=== PATIENT | female | born 1955 | race African-American/Black ===

== ENCOUNTER → 2019-11-19 | Day surgery (SDC) | payer OTHER ==
[~2019-11-19] MED LIST: ASA81BEC PO; ATIVAN0.5 M1 PO; CARVEDILOL12.5 MG PO; LEVO-T100 MCG PO; LIPITOR40 MG PO; NORCO 5-325 TA1 EAC1 PO; NORVASC10 MG PO; TYLENOL325 M1 PO; ULTRAM 50MG TAB50 MG PO
[2019-11-19 08:28] LABS: HEMATOCRIT 37.1 % (37.0-47.0); HEMOGLOBIN 12.4 gm/dL (12.0-15.0); MCH 29.6 pg (26.0-34.0); MCHC 33.4 g/dL (28.0-37.0); MCV 88.6 fL (80.0-100.0); MPV 7.2 fl. (7.2-11.1); RBC 4.19 mil/uL (4.20-5.00); RDW-CV 13.7 % (10.5-14.5); WBC 12.3 thou/uL (4.0-11.0)
[2019-11-19 08:34] LABS: CALCIUM 9.2 mg/dL (8.5-10.1); CREATININE 0.8 mg/dL (0.6-1.3); POTASSIUM 4.2 mmol/L (3.5-5.1)
--- NOTE | 2019-11-19 10:35 | EKG ---
[place] [address] ELECTROCARDIOGRAM REPORT Name: CHRISAGNIESZKA Vyas Room: [facility]#: [id number] Admission: 11/19/19 Attend Phys: Charly Song Discharge: Date of : 57 Date of Service: 11/19/19812 Report #: [id number] THIS REPORT FOR: //name// [facility] Test Date: 2019-11-19 Test Time: 08:13:52 Pat Name: AGNIESZKA PEREZ Department: Room: Gender: Director Hospice Operations: : 1955 Requested By: Charly Peterson Order Number: [id number] Reading MD: Constantino Jimenez Measurements Intervals Calvin Rate: 82 P: 28 IL: 120 QRS: -17 QRSD: 87 T: 5 QT: 353 QTc: 413 Interpretive Statements Sinus rhythm Abnormal R-wave progression, early transition Left ventricular hypertrophy Borderline T abnormalities, inferior leads Baseline wander in lead(s) V4,V5 No previous ECG available for comparison Electronically Signed On 11-19-2019 10:33:30 CDT by Constantino Jimenez [email or web address] <ELECTRONICALLY SIGNED> By: Constantino Jimenez MD, [facility] 11/19/19 1033 2 Constantino Jimenez MD, [facility] /EPI
--- NOTE | 2019-11-23 23:07 | PATH ---
[facility] [address] [place] [address] PATHOLOGY RPT PROCEDURE Name: BRIANNA PEREZ Asael Room: [facility].#: [id number] Admission: 11/19/19 Date of : 57 Discharge: Report #: [id number] Path Case #: [id number] [facility] Accession Number: [id number] . 01 Material submitted: . lymph node - RIGHT SUPRACLAVICULAR LYMPH NODE. Modifiers: right . 01 Clinical history: . Generalized enlarged lymph node. . 02 Diagnosis: "Right supraclavicular lymph node", excisional biopsy: - Lymph node with hyperplasia. (See comment) . (CLW:lee; 11/23/2019) [facility] 11/23/2019 1350 Local . 02 Comment: Sections show fragments of lymph node with overall retained lymph node architecture. From low power, there are variably sized follicles showing irregular, well-formed germinal centers. The germinal centers have polarized mantle/marginal zones and tingible body macrophages. The interfollicular spaces are mildly expanded by reactive-appearing lymphohistiocytic cells. No markedly atypical lymphoid cells, including Zuhair-Nyasia cells, are identified. No granulomas, metastatic carcinoma or other infiltrative processes are seen. . To highlight the lymph node architecture, properly-controlled immunohistochemical stains are performed: . Block A1: CD20 - Stains B-cells primarily in follicles; PAX-5 - Stains B-cells primarily in follicles; CD3 - Stains interfollicular T-cells; CD5 - Stains interfollicular T-cells, no B-cell co-expression; CD10 - Highlights the germinal center; BCL-6 - Highlights the germinal center; BCL-2 - The germinal centers are non-reactive; CD23 - Stains residual follicular dendritic cell meshwork; Cyclin D1 - Lacks diffuse nuclear staining; MUM1 - Highlights numerous smaller cells (plasma cells); Ki-67 - Increased staining within the germinal centers. . Overall, the diagnosis is lymph node with hyperplasia. There is no evidence of lymphoma or metastatic carcinoma in the material examined. If there is a strong clinical suspicion for a lymphoproliferative process and/or the adenopathy is persistent, fresh [place] [address] PATHOLOGY RPT PROCEDURE Name: AFIA PEREZRA Vyas Room: [facility]#: [id number] Admission: 11/19/19 Date of : 57 Discharge: Report #: [id number] Path Case #: [id number] cytometric immunophenotypic analysis may provide additional information, if clinically indicated. Clinical and radiographic correlation is recommended. The H and E stained slide is co-reviewed with Dr. Tejinder Taylor. The case is discussed with Dr. Peterson by Dr. Taylor on 11/23/19 at approximately 4:00 PM. . (CLW:mml; 11/23/2019) . 02 Electronically signed: . Chelsi Kelley MD, Pathologist NPI- [id number] . 01 Gross description: . Received in formalin labeled "Brianna Perez, right supraclavicular lymph node" is a olson-brown lymph node measuring 1.8 x 1.3 x 0.9 cm. The lymph node is serially sectioned and submitted entirely in cassette A1. ([facility]; 11/21/2019) [facility] 11/21/2019 1108 Local . 02 Pathologist provided ICD-10: R59.9 . 02 CPT . 882781, O04535, I37292 Specimen Comment: A courtesy copy of this report has been sent to [phone], [phone] Specimen Comment: [phone] Specimen Comment: Report sent to / DR VELASCO Performed at: 01 [facility] [address], [place] [id number] MD Mazin Jama MD Phone: [phone] Performed at: [address] [place] [address] [id number] MD Nic Floyd MD Phone: [phone]
--- NOTE | 2019-11-26 13:17 | OP ---
[facility] [address] [place] [address] OPERATIVE REPORT Name: AGNIESZKA PEREZ Room: [facility]#: [id number] Admission: 11/19/19 Attend Phys: Charly Peterson Discharge: Date of : 57 Report #: [id number] THIS REPORT FOR: //name// cc: Shantel Mendoza MD, Allison Louise MD ~ THIS REPORT FOR: //name// CC: Shantel Peterson DATE OF SERVICE: 11/19/2019 PREOPERATIVE DIAGNOSIS: Right supraclavicular lymphadenopathy. POSTOPERATIVE DIAGNOSIS: Right supraclavicular lymphadenopathy. OPERATION: Excisional biopsy of right supraclavicular lymph node. SURGEON: Charly Peterson MD ANESTHESIA: General. ESTIMATED BLOOD LOSS: Minimal. SPECIMEN: Right supraclavicular lymph node. DESCRIPTION OF PROCEDURE: After informed consent was obtained, the patient was brought to the operating room and placed supine. SCDs were placed and working, preoperative antibiotics were administered, general anesthesia was induced. The right chest was prepped and draped in the usual sterile fashion. The area was then anesthetized with 5 mL of 0.5% Marcaine solution. A 2 cm incision was made over the right mid clavicle. Cautery dissection was down made down through the subcutaneous tissue. The lymph node was then encountered. It was dissected around with cautery. I then measured approximately 1.5 x 1 cm. I clamped it at its pedicle and ligated it with a 3-0 Vicryl suture. The lymph node was then sent off as a specimen. The deep layer of the skin was then closed with 3-0 Vicryl in an interrupted fashion. Skin was closed with 4-0 Monocryl. Incisions were sealed with Dermabond. COMPLICATIONS: None. DISPOSITION: The patient was taken to recovery in satisfactory condition. <ELECTRONICALLY SIGNED> By: Charly Peterson MD 11/26/19 1317 1207 1212Charly Peterson MD /nt
== END | disposition home or self-care (01) ==
LOC: M.SUR 07:49
PROVIDERS: ATTEND Surgery
DX: R59.0 Localized enlarged lymph nodes (principal); I10 Essential (primary) hypertension; E03.9 Hypothyroidism, unspecified; Z98.890 Other specified postprocedural states; Z79.899 Other long term (current) drug therapy; Z11.59 Encounter for screening for other viral diseases; Z88.8 Allergy status to other drugs, medicaments and biological substances

== ENCOUNTER → 2020-03-15 | Outpatient (CLI) | payer OTHER ==
[~2020-03-15] MED LIST changes: +ALPRAZOLAM XR3 MG PO; +BIOTIN0.5 GM; +CHLORTHALIDONE25 MG PO; +CHROMIUM PICO200 MC1; +DESYREL150 MG PO; +FISH OIL 1,0001 EAC9 PO; +FLAX OIL1000 MG PO; +FLONASE 0.05%50 MCG NASAL; +JARDIANCE10 MG PO; +NORCO 5-325 TA1 EAC2 PO; +TRADJENTA5 MG PO; +VITAMIN D21250 MCG PO; +XARELTO20 MG PO
== END ==
LOC: M.PC 09:03
PROVIDERS: ATTEND Physical Medicine & Rehabilitation
DX: M25.861 Other specified joint disorders, right knee (principal); I70.203 Unspecified atherosclerosis of native arteries of extremities, bilateral legs; M54.16 Radiculopathy, lumbar region; M79.604 Pain in right leg; M17.0 Bilateral primary osteoarthritis of knee